=== PATIENT | female | born 1960 | race Caucasian/White ===

== ENCOUNTER 2020-09-16 09:48 | Outpatient (CLI) | payer MEDICARE, BC, SELFPAY ==
--- NOTE | ~2020-09-16 | DEXA_ITS ---
Bone Density Report Name: Ariela Amezcua Age: 60 Sex: Female Ethnicity: Date of : 1960 Indication: osteopenia; prior fracture; asthma or emphysema; hysterectomy; postmenopausal Referring Provider: Ivett, Melodie Franks Study: Bone densitometry was performed. Exam Date: September 16, 2020 Accession number: [id number] Bone Density: Region BMD T-score Z-score Classification AP Spine (L2, L3, L4) 0.766 -2.8 -1.2 Osteoporosis Femoral Neck (Left) 0.675 -1.6 -0.4 Osteopenia Total Hip (Left) 0.881 -0.5 0.4 Normal Total Hip Bilateral Avg 0.862 -0.7 0.3 Normal Femoral Neck (Right) 0.745 -0.9 0.2 Normal Total Hip (Right) 0.842 -0.8 0.1 Normal World Health Organization criteria for BMD impression classify patients as: Normal (T-score at or above -1.0), Osteopenia (T-score between -1.0 and -2.5), or Osteoporosis (T-score at or below -2.5). 10-year Fracture Risk: FRAX not reported because: Some T-score for Spine Total or Hip Total or Femoral Neck at or below -2.5 Previous Exams: Region Exam Age BMD T-score BMD Change BMD Change Date g/cm2 vs Baseline vs Previous AP Spine(L2, L3, L4) 09/16/2020 60 0.766 -2.8 -0.259(-25.2%) -0.123(-13.8%) 01/22/2012 51 0.889 -1.7 -0.136(-13.3%) -0.124(-12.2%) 11/07/2009 49 1.013 -0.6 -0.012(-1.2%) 0.029(2.9%)* 07/24/2008 47 0.984 -0.9 -0.041(-4.0%)* -0.041(-4.0%)* 11/11/2006 46 1.025 -0.5 Total Hip(Left) 09/16/2020 60 0.881 -0.5 0.013(1.5%)# 0.035(4.1%)* 01/22/2012 51 0.846 -0.8 -0.022(-2.6%)# -0.027(-3.1%)# 11/07/2009 49 0.873 -0.6 0.005(0.5%) -0.018(-2.1%) 07/24/2008 47 0.891 -0.4 0.023(2.7%) 0.023(2.7%) 11/11/2006 46 0.868 -0.6 Total Hip(Right) 09/16/2020 60 0.842 -0.8 0.013(1.6%)# -0.007(-0.8%) 01/22/2012 51 0.849 -0.8 0.021(2.5%)# 0.021(2.6%)# 11/07/2009 49 0.828 -0.9 -0.001(-0.1%) 0.006(0.7%) 07/24/2008 47 0.822 -1.0 -0.006(-0.8%) -0.006(-0.8%) 11/11/2006 46 0.829 -0.9 *Denotes significance at 95% confidence level, LSC for AP Spine = 0.022 g/cm2, LSC for Total Hip = 0.027 g/cm2 Clinical Information Provided by Patient: Has had a low trauma fracture Has the following medical conditions: Asthma or Emphysema, Hysterectomy Patient maximum height was 61 No regular weight bearing exercise Drinks caffeinated beverages Onset of menses at age 10 Number of children 2 Impression: The patient has est
--- NOTE | ~2020-09-16 | MM_ITS ---
EXAMINATION: MM screening jocelynn BI w alicia HISTORY: Screening TECHNIQUE: Craniocaudal and mediolateral oblique 3-D tomosynthesis images were obtained and synthetic 2-D images were generated. CAD analysis was submitted and interpreted. COMPARISON: Comparison to multiple prior studies sequentially, with oldest reviewed study dated 06/21. BREAST PARENCHYMAL COMPOSITION: There are scattered areas of fibroglandular density. FINDINGS: There are developing asymmetries in the periareolar location of the right breast. The left breast is stable without evidence for malignancy. IMPRESSION: 1. Developing right breast asymmetries. 2. Additional mammographic views and possible breast ultrasound are recommended. BI-RADS Category 0: Incomplete: Needs additional imaging evaluation. Reviewed, dictated and finalized at location A. IMPRESSION: 1. Developing right breast asymmetries. 2. Additional mammographic views and possible breast ultrasound are recommended . BI-RADS Category 0: Incomplete: Needs additional imaging evaluation.
== END 2020-09-16 09:49 | disposition home or self-care (01) ==
LOC: ANHIMG 09:51
PROVIDERS: PCP Internal Medicine; Visit Provider Internal Medicine
DX: Z12.31 Encounter for screening mammogram for malignant neoplasm of breast (principal); Z78.0 Asymptomatic menopausal state; R92.8 Other abnormal and inconclusive findings on diagnostic imaging of breast; M81.0 Age-related osteoporosis without current pathological fracture; M85.852 Other specified disorders of bone density and structure, left thigh
CPT/HCPCS: 77063; 77067; 77080

== ENCOUNTER 2020-10-11 12:52 | Outpatient (CLI) | payer MEDICARE, BC, SELFPAY ==
--- NOTE | ~2020-10-11 | US_ITS ---
Please refer to diagnostic mammogram report dated 10/11/2020 for details. Reviewed, dictated and finalized at location A.
--- NOTE | ~2020-10-11 | MM_ITS ---
EXAMINATION: MM diagnostic jocelynn RT w alicia HISTORY: Follow-up breast masses TECHNIQUE: Additional 3-D tomosynthesis images of the right breast were performed and synthetic 2-D i mages were generated. CAD analysis was submitted and interpreted. High resolution right complete [address] st ultrasound was performed. COMPARISON: 09/16/2020 BREAST PARENCHYMAL COMPOSITION: Breast composed of scattered areas of fibroglandular density FINDINGS: MAMMOGRAPHIC FINDINGS: There is an 8 mm mass in the mid lateral aspect of the right breast anteriorly. There is a mass in th e subareolar location of the right breast measuring 8 mm, slightly medial on CC view. ULTRASOUND: Right breast ultrasound: At 12:00, 1 cm from the nipple, there is a 7 mm cyst. At 9:00, 1 cm from the nipple, there is a 9 mm intramammary lymph node. No suspicious masses to suggest malignancy. These m asses correspond to the mammographic findings. IMPRESSION: 1. No evidence for malignancy in the right breast. Benign findings. 2. Routine yearly screening mammogram and regular clinical breast examination are recommended. BI-RADS Category 2: Benign finding(s). Reviewed, dictated and finalized at location A. IMPRESSION: 1. No evidence for malignancy in the right breast. Benign findings. 2. Routine yearly screening mammogram and regular clinical breast examination a re recommended. BI-RADS Category 2: Benign finding(s).
== END 2020-10-11 12:53 | disposition home or self-care (01) ==
LOC: ANHIMG 12:53
PROVIDERS: PCP Internal Medicine; Visit Provider Internal Medicine
DX: R92.8 Other abnormal and inconclusive findings on diagnostic imaging of breast (principal)
CPT/HCPCS: 76641; 77061; 77065; G0279

== ENCOUNTER 2021-03-26 13:02 | Outpatient (CLI) | payer MEDICARE, BC, SELFPAY ==
--- NOTE | ~2021-03-26 | US_ITS ---
EXAMINATION:US venous doppler LE LT INDICATION:Left leg pain TECHNIQUE: Multiple grayscale, color flow and Doppler images of the left lower extremity deep venous systems were obtained and reviewed. COMPARISON:No prior studies for comparison. FINDINGS: The common femoral, superficial femoral and popliteal veins demonstrate normal respiratory variation, augmentation and compressibility. Color flow is also seen within the posterior tibial, pe roneal, greater saphenous and profunda veins. IMPRESSION: 1: No lower extremity deep venous thrombosis. Reviewed, dictated and finalized at location B. LER OPERATOR
--- NOTE | ~2021-03-26 | XR_ITS ---
EXAMINATION: XR knee LT min 4V DATE: 03/26/2021 13:39 INDICATION: Left knee pain. TECHNIQUE: 5 views of left knee were obtained. COMPARISON: Left knee radiographs 01/15/2009 FINDINGS: Bone alignment is normal. No fracture. There is mild tricompartmental osteoarthritis charac terized by marginal osteophytes. No joint space narrowing. No knee joint effusion. IMPRESSION: 1. Mild left knee osteoarthritis. Reviewed, dictated and finalized at location A. OR SCRIPT EDITOR
== END 2021-03-26 13:03 | disposition home or self-care (01) ==
LOC: ANHIMG 13:06
PROVIDERS: PCP Internal Medicine; Visit Provider Internal Medicine
DX: M17.12 Unilateral primary osteoarthritis, left knee (principal)
CPT/HCPCS: 73564; 93971

== ENCOUNTER 2023-05-12 02:27 | Day surgery (SDC) | payer MEDICARE, BC, SELFPAY ==
[2023-02-11 10:06] VITALS: BMI 35.4
--- NOTE | 2023-02-15 09:12 | SUR.PREOP ---
Patient called regarding upcoming procedure. Reviewed preop instructions, appointment times, and procedure prep.
--- NOTE | 2023-02-15 09:16 | SUR.PREOP ---
Call patient to give her a reminder call. Patient stated that they had a in the family and would be heading out of town for the . She said she would call back to reschedule her appointment.
[2023-05-03 14:52] VITALS: BMI 35.9
--- NOTE | 2023-05-10 09:18 | SUR.PREOP ---
Patient called regarding upcoming procedure. Reviewed preop instructions, appointment times, and procedure prep.
[2023-05-12 12:35] VITALS: BP 132/96; PULSE 119; RESP 20; TEMP 36.2; O2SAT 98; BMI 35.2
[2023-05-12] MEDS: LACTATED RINGERS 1,000 ML 150 ML IV CONT (12:38)
--- NOTE | 2023-05-12 12:49 | WPDANESEPPF ---
Anes - Initial Pre Proc Eval Procedure: Operation Date: 05/12/23 13:30 Proposed Procedures p Colonoscopy - Nikko Harden MD Date/Time: 05/12/23 12:49 Surgeon: Nikko Harden MD Pre Op Diagnosis: Other Fecal Abnormalities (+cologuard) Patient Data Age: 62 Gender: F Height: 1.55 m Weight: 84.7 kg Last Vital Signs Temp 97.2 F L 05/12/23 12:35 Pulse 119 H 05/12/23 12:35 Resp 20 05/12/23 12:35 BP 132/96 H 05/12/23 12:35 Pulse Ox 98 05/12/23 12:35 O2 Del Method Room Air 05/12/23 12:35 Allergies Allergy/AdvReac Type Severity Reaction Status Date / Time No Known Drug Allergies Allergy Verified 05/12/23 12:39 Home Medications Medication Instructions Recorded Confirmed Type triamcinolone acetonide 0.1 % 1 applic topical QID #80 grams 04/21/19 05/03/23 Rx topical cream dextroamphetamine-amphetamine 20 20 mg PO DAILY 02/11/23 05/03/23 History mg tablet duloxetine 30 mg capsule,delayed 30 mg PO DAILY 02/11/23 05/03/23 History release lisinopril 10 mg tablet 10 mg PO DAILY 02/11/23 05/03/23 History suvorexant 10 mg tablet (Belsomra) 10 mg PO HS 02/11/23 05/03/23 History Patient hx anesthesia problems: none Family hx anesthesia problems: none Results Review: All pre-operative results and documents have been reviewed as part of the pre-operative evaluation. [facility] Family History Family History (Updated 12/30/17 @ 10:43 by DOCTOR UNKNOWN) Mother Family history of osteoarthritis Family history of mental disorder Father Family history of heart disease in male family member before age 55 Family history of mental disorder Family history of osteoarthritis Family history of coronary artery disease Other Family history of bipolar disorder Family history of restless legs syndrome Social History Social History Smoking status: Never smoker Alcohol intake: current Drinks per week: 7 Alcohol use details: occasionally Substance use: former Substance use type: marijuana Other substance usage details: used calming gummies Living arrangements: with family Spiritual care concerns: No Anes - Eval Final PreProcedure Day of Procedure 05/12/23 12:49 Patient weight: obese Heart: regular rate and rhythm Lungs: clear to auscultation Airway: Mallampati scale class II Neurological: alert and oriented Last oral intake: >/= 8 hours ASA classification: III Emergent: no Anesthetic plan: proceed Anesthesia type and monitoring: general GIVS and standard monitoring Results Review: All pre-operative results and documents have been reviewed as part of the pre-operative evaluation. Informed Consent: The patient's anesthetic plan and its attendant risks and benefits were discussed with the patient/family/POA. Questions were solicited and answers provided to the satisfaction of the patient/family/POA.
--- NOTE | 2023-05-12 13:48 | PM.HPGS ---
History of Present Illness History of Present Illness Consent: Risks, benefits, and alternatives have been discussed and questions answered. Patient agrees to proceed with procedure. Chief complaint: Other Fecal Abnormalities (+cologuard) Narrative: Ariela Amezcua is a 62 year old female here for colonoscopy, last one 14 years ago, had recent + cologuard Review of Systems Review of Systems: All systems reviewed & are unremarkable except as noted in HPI and below PMFSH Past Medical History Medical History (Updated 05/12/23 @ 13:49 by Nikko Harden MD) Positive colorectal cancer screening using Cologuard test Family History Family History (Updated 12/30/17 @ 10:43 by DOCTOR UNKNOWN) Mother Family history of osteoarthritis Family history of mental disorder Father Family history of heart disease in male family member before age 55 Family history of mental disorder Family history of osteoarthritis Family history of coronary artery disease Other Family history of bipolar disorder Family history of restless legs syndrome Social History Social History Smoking status: Never smoker Alcohol intake: current Drinks per week: 7 Alcohol use details: occasionally Substance use: former Substance use type: marijuana Other substance usage details: used calming gummies Living arrangements: with family Spiritual care concerns: No Meds Home Medications and Allergies Home Medications Medication Instructions Recorded Confirmed Type triamcinolone acetonide 0.1 % 1 applic topical QID #80 grams 04/21/19 05/03/23 Rx topical cream dextroamphetamine-amphetamine 20 20 mg PO DAILY 02/11/23 05/03/23 History mg tablet duloxetine 30 mg capsule,delayed 30 mg PO DAILY 02/11/23 05/03/23 History release lisinopril 10 mg tablet 10 mg PO DAILY 02/11/23 05/03/23 History suvorexant 10 mg tablet (Belsomra) 10 mg PO HS 02/11/23 05/03/23 History Allergies Allergy/AdvReac Type Severity Reaction Status Date / Time No Known Drug Allergies Allergy Verified 05/12/23 12:39 Vital Signs Vital Signs - 24 hr 05/12/23 12:35 Temperature 97.2 F L Pulse Rate 119 H Respiratory Rate 20 Blood Pressure 132/96 H Pulse Oximetry 98 Oxygen Delivery Room Air Exam Const: General: comfortable and no acute distress HENMT: Face/Nose/Sinus: Normal nares present Eyes: General: appearance normal, both eyes and all related structures Neck: Neck: no JVD Resp: Auscultation: clear to auscultation bilaterally Cardio: Rate: regular rate Rhythm: regular rhythm GI: Inspection: non-distended GI Palp: Yes Soft to palpation Skin: General skin exam: normal color Neuro: General: gait normal Speech: normal speech Extrem: General: normal to inspection Psych: Mental Status: mental status grossly normal Assessment and Plan Assessment and plan (1) Positive colorectal cancer screening using Cologuard test: Code(s): R19.5 - Other fecal abnormalities Status: Acute Assessment and Plan: colonoscopy
[2023-05-12 14:06] VITALS: BP 109/59; PULSE 109; RESP 21; O2SAT 96
[2023-05-12 14:16] VITALS: BP 112/75; PULSE 109; RESP 20; O2SAT 97
[2023-05-12 14:26] VITALS: BP 121/71; PULSE 100; RESP 20; O2SAT 100
== END 2023-05-12 14:32 | disposition home or self-care (01) ==
PROVIDERS: PCP Internal Medicine; Visit Provider Internal Medicine Gastroenterology
PROC: 0DJD8ZZ Inspection of Lower Intestinal Tract, Via Natural or Artificial Opening Endoscopic (ICD-10-PCS; CPT 45378; principal; 2023-05-12 13:30)
DX: K63.5 Polyp of colon (principal); K57.30 Diverticulosis of large intestine without perforation or abscess without bleeding; K64.8 Other hemorrhoids; F10.90 Alcohol use, unspecified, uncomplicated; Z79.52 Long term (current) use of systemic steroids; Z79.899 Other long term (current) drug therapy
CPT/HCPCS: 45385; 88305; J2704; J7120

== ENCOUNTER 2023-09-28 14:47 | Outpatient (CLI) | payer MEDICARE, BC, SELFPAY ==
--- NOTE | ~2023-09-28 | MM_ITS ---
EXAMINATION: MM screening jocelynn BI w alicia HISTORY: Screening TECHNIQUE: Craniocaudal and mediolateral oblique 3-D tomosynthesis images were obtained and synthetic 2-D images were generated. CAD analysis was submitted and interpreted. COMPARISON: Comparison to multiple prior studies sequentially, with oldest reviewed study dated 06/25. BREAST PARENCHYMAL COMPOSITION: Not dense: There are scattered areas of fibroglandular density. FINDINGS: There is no evidence of suspicious mass, calcification, or architectural distortion to sugg est malignancy in either breast. There has been no suspicious interval change. IMPRESSION: 1. No mammographic evidence of malignancy. 2. Recommend routine screening mammography in one year. BI-RADS Category 1: Negative Reviewed, dictated and finalized at location B.
== END 2023-09-28 14:48 | disposition home or self-care (01) ==
LOC: ANHIMG 14:50
PROVIDERS: PCP Internal Medicine; Visit Provider Internal Medicine
DX: Z12.31 Encounter for screening mammogram for malignant neoplasm of breast (principal)
CPT/HCPCS: 77063; 77067

== ENCOUNTER 2024-01-26 14:55 | Outpatient (CLI) | payer MEDICARE, BC, SELFPAY ==
--- NOTE | ~2024-01-26 | DEXA_ITS ---
Bone Density Report Name: SHELTON HURTADO Age: 63 Sex: Female Ethnicity: Date of : 1960 Indication: postmenopausal; screening for osteoporosis; height loss; asthma or emphysema; hysterectomy; Referring Provider: ARMANI CHAUDHRY Study: Bone densitometry was performed. Exam Date: January 26, 2024 Accession number: [id number] Bone Density: Region BMD T-score Z-score Classification AP Spine(L1-L4) 0.843 -1.9 -0.1 Osteopenia Femoral Neck (Left) 0.680 -1.5 -0.2 Osteopenia Total Hip (Left) 0.901 -0.3 0.7 Normal Femoral Neck (Right) 0.607 -2.2 -0.8 Osteopenia Total Hip (Right) 0.893 -0.4 0.6 Normal Total Hip Mean 0.897 -0.4 0.7 Normal World Health Organization criteria for BMD impression classify patients as: Normal (T-score at or above -1.0), Osteopenia (T-score between -1.0 and -2.5), or Osteoporosis (T-score at or below -2.5). 10-year Fracture Risk(1): Major Osteoporotic Fracture 5.8% Hip Fracture 0.9% Reported Risk Factors: [place] (), Neck BMD=0.607, BMI=36.7 (1) FRAX(R) Version 3.08. Fracture probability calculated for an untreated patient. Fracture probability may be lower if the patient has received treatment. Previous Exams: Region Exam Age BMD T-score BMD Change BMD Change Date g/cm2 vs Baseline vs Previous Total Hip(Left) 01/26/2024 63 0.901 -0.3 0.020 (2.2%)# 0.020 (2.2%)# 09/16/2020 60 0.881 -0.5 Total Hip(Right) 01/26/2024 63 0.893 -0.4 0.050 (6.0%)# 0.050 (6.0%)# 09/16/2020 60 0.842 -0.8 *Denotes significance at 95% confidence level, LSC for Total Hip = 0.027 g/cm2 # Denotes dissimilar scan types or analysis methods Clinical Information Provided by Patient: Has the following medical conditions: Asthma or Emphysema, Hysterectomy Patient maximum height was 60 No regular weight bearing exercise Drinks caffeinated beverages Onset of menses at age 10 Number of children 2 Impression: The patient has low bone mass, based on the Right Femoral Neck T-score. The patient has an estimated ten-year risk of hip fracture of 0.9% and an estimated ten-year risk of major fracture of 5.8%, based on the WHO FRAX algorithm. No significant bone loss was observed. Discussion: BONE DENSITY IS LOW AT ONE OR MORE SKELETAL SITES. This patient's lowest T-score is low at one or more skeletal sites. It meets the World Health Organization's (WHO) criteria for ?low bone mass? (T-score between -1.0 and -2.5). The patient's 10-year risk of fracture as calculated by FRAX is less than the threshold where pharmacological therapy is recommended by the National Osteoporosis Foundation (NOF). However, all treatment decisions require clinical judgment and consideration of individual patient factors, including patient preferences, comorbidities, previous drug use, risk factors not captured in the FRAX model (e.g., frailty, falls, vitamin D deficiency, increased bone turnover, interval significant decline in bone density) and possible under or overestimation of fracture risk by FRAX. The patient should follow a healthful lifestyle (good nutrition with adequate calcium and vitamin D, and appropriate weight-bearing exercise). Follow-Up: Consider repeating this study in 2 to 3 years to reassess this patient's status, or sooner if there is some new clinical indication. Reported by: KERRIE on 01/26/2024 3:38:00 PM. Reviewed, dictated and finalized at location A. [facility]
== END 2024-01-26 14:56 | disposition home or self-care (01) ==
LOC: ANHIMG 14:56
PROVIDERS: PCP Internal Medicine; Visit Provider Internal Medicine
DX: M85.89 Other specified disorders of bone density and structure, multiple sites (principal); M81.0 Age-related osteoporosis without current pathological fracture
CPT/HCPCS: 77080

== ENCOUNTER 2024-05-09 11:41 | Outpatient (CLI) | payer MEDICARE, BC, SELFPAY ==
--- NOTE | ~2024-05-09 | US_ITS ---
RIGHT LOWER EXTREMITY VENOUS ULTRASOUND Ordering provider: Melodie Root MD History: . rt thigh pain and swelling . Comparison: None. FINDINGS: --COMMON FEMORAL: Patent and free of thrombus. Normal compressibility, phasic flow and augmentation. --PROXIMAL SUPERFICIAL FEMORAL: Patent and free of thrombus. Normal compressibility, phasic flow and augmentation. --DISTAL SUPERFICIAL FEMORAL: Patent and free of thrombus. Normal compressibility, phasic flow and au gmentation. --POPLITEAL: Patent and free of thrombus. Normal compressibility, phasic flow and augmentation. --POSTERIOR TIBIAL: Patent and free of thrombus. Normal compressibility, phasic flow and augmentation . IMPRESSION: Negative right lower extremity venous US. No deep vein thrombosis. Reviewed, dictated and finalized at location A.
--- OUTSIDE RECORDS SUMMARY | 2024-05-09 13:21 | XMS_ITS | Referral Summary ---
Author Organization [facility] [employer] [facility] Address [address] [place] [address] Phone Care Team Providers Care Comic Writer Name Role Phone Gala Santana MD Primary Care Provider [phone] Encounters Date Type Department Care Team Description 02/18/2024 Telephone Get[employer] [address] [place] [address] [address] [place] [address] Tarsha Wray MD from Last 3 Months Allergies Active Allergy Reactions Criticality Noted Date Comments No Known Allergies Other (See comments) Low Reaction: Medications ALPRAZolam (XANAX) 0.5 mg tablet TAKE 1 TABLET 3 TIMES DAILY NEEDED. 3 Active zolpidem (AMBIEN) 5 mg tabletIndications: Sleep-Onset Insomnia TAKE 1 TABLET AT BEDTIME. 3 Active methylphenidate ER (CONCERTA) 36 mg CR tabletIndications: Attention-Deficit Hyperactivity Disorder 36 mg every morning. [address] (CYMBALTA) 60 mg capsule Take 1 capsule (60 mg total) by mouth daily Active traZODone (DESYREL) 50 mg tablet Take 1 tablet (50 mg total) by mouth nightly Active dextroamphetamine- amphetamine (ADDERALL) 5 mg tablet 1 tablet (5 mg total) Active lisinopriL (PRINIVIL,ZESTRIL) 10 mg tablet Take 1 tablet (10 mg total) by mouth daily Active clobetasoL (TEMOVATE) 0.05 % ointment Active Belsomra 10 mg tablet Take 1 tablet (10 mg total) by mouth nightly Active Active Problems Problem Noted Date Diagnosed Date Sweating abnormality 02/18/2024 Assessment & Plan (02/18/2024 3:04 PM RN BSN): I called the patient on February 17 to see if she would like a referral to endocrinology for her sweating She would very much be interested in this We will put the referral in She was asked to call if she does not hear back by the of the year Vaginal irritation 12/13/2023 Assessment & Plan (02/07/2024 4:42 PM RN BSN): Looks better with the temovate Use reviewed I will see her back in 6m. Assessment & Plan (12/13/2023 2:45 PM CDT): I suspect this is lichen sclerosis. I was going to start with triamcinolone, but then she told me that she has been using temovate from her pcp for about a month Goes back next week. To continue on To use for three weeks and then one week off. To continue vaseline. We discussed that it take time to get under control She is not wearing pad, but leaks. She has an appointment with . Well woman exam 12/13/2023 Overview (12/13/2023): Lab: Pap:remote h/o abnl pap. Labs with pcp Beatrice:late 2022 at [place] Colonoscopy:at [place] 2023- she is not sure when she goes back. Cologuard was positive. BMD:remote. She is on the waiting list. Assessment & Plan (02/07/2024 4:43 PM RN BSN): Due in Nov 2024 Assessment & Plan (12/13/2023 2:24 PM CDT): Needs complete exam. Status post epigastric hernia repair, follow-up exam 08/05/2017 Fibromyalgia 05/27/2015 Inflammation of sacroiliac joint 05/27/2015 Chronic pain 05/24/2015 Cervical radiculopathy 05/03/2015 Low back pain 04/24/2014 Overview (08/05/2017): Back pain Neck pain 04/24/2014 Overview (06/05/2016): Neck pain Bipolar affective disorder 09/28/2012 Overview (06/05/2016): Bipolar disorder Attention deficit disorder (ADD) without hyperac tivity 09/28/2012 Overview (06/05/2016): ADD (attention deficit disorder) Anaclitic depression 09/28/2012 Overview (08/05/2017): Depression Resolved Problems Problem Noted Date Diagnosed Date Resolved Date Dizziness 04/24/2014 08/05/2017 Overview (06/05/2016): Dizziness Constipation 04/24/2014 08/05/2017 Overview (06/05/2016): Constipation Ankle pain 04/17/2014 08/05/2017 Overview (06/05/2016): Ankle pain Anxiety 09/28/2012 08/05/2017 Overview (06/06/2016): Anxiety Social History Tobacco Use Types Packs/Day Years Used Date Smoking Tobacco: Never Smokeless Tobacco: Never Alcohol Use Standard Drinks/Week Comments Yes 3 (1 standard drink = 0.6 oz pur e alcohol) Humiliation, Afraid, Rape, and Kick questionnair e Answer Date Recorded Within the last year, have y ou been afraid of your partner or ex-partner? No 12/13/2023 Within the last year, have y ou been humiliated or emotionally abused in other ways by your partner or ex-partner? No Within the last year, have y ou been kicked, hit, slapped, or otherwise physically hurt by your partner or ex-partner? No 12/13/2023 Within the last year, have y ou been raped or forced to have any kind of sexual activity by your partner or ex-partner? No 12/13/2023 AUDIT-C Answer Date Recorded Q1: How often do you have a drink containing alc ohol? Monthly or less 12/13/2023 Q2: How many drinks containi ng alcohol do you have on a typical day when you are drinking? 1 or 2 12/13/2023 Q3: How often do you have si x or more drinks on one occasion? Never 12/13/2023 Comments Unknown Sex and Gender Information Value Date Recorded Sex Assigned at Not on file Legal Sex Female 2:57 AM RN BSN Gender Identity Not on file Sexual Orientation Not on file Occupation Industry Job Start Date Job End Date Retired from [employer] Not on file Not on file Not on file Last Filed Vital Signs Vital Sign Reading Time Taken Comments Blood Pressure 130/70 02/07/2024 4:30 PM RN BSN Pulse 80 08/05/2017 3:51 PM CDT Temperature 36.7 C (98.1 F) 08/05/2017 3:51 PM CDT Respiratory Rate - - Oxygen Saturation 94% 07/29/2017 7:41 AM CDT Inhaled Oxygen Concentration - - Weight 85.3 kg (188 lb) 02/07/2024 4:30 PM RN BSN Height 154.9 cm (5' 1 ) 02/07/2024 4:30 PM RN BSN Body Mass Index 35.52 02/07/2024 4:30 PM RN BSN Plan of Treatment Not on file Procedures Procedure Name Priority Date/Time Associated Diagnosis Comments SCREENING MAMMOGRAM W JESU Routine 03/31/2012 2:54 PM RN BSN from Last 3 Months or Most Recently Relevant to Health Maintenance Results * Screening Mammogram W Jesu (03/31/2012 2:54 PM RN BSN) Anatomical Region Laterality Modality Breast N/A Mammography 03/31/2012 2:54 PM RN BSN Narrative 03/31/2012 4:02 PM RN BSN CHHAYA JOE M.D. NIKHIL WILCOX, FINAL REPORT The radiology attending physician has personally reviewed this study, and has reviewed and/or edited this written report and agrees with it. ACC# Date Time Exam [id number] Mar 31, 2012 14:54:00 [facility] [id number] Diag Mammogram Unilateral R Technologist(s): Damaris Shultz; ; [id number] Mar 31, 2012 14:54:00 [facility] [id number] Unilateral Tomosynthesis R Technologist(s): Damaris Shultz; ; EXAMINATION: RIGHT UNILATERAL FULL FIELD DIGITAL DIAGNOSTIC MAMMOGRAM AND DIGITAL BREAST TOMOSYNTHESIS HISTORY: Abnormal screening mammogram. Recent screening mammogram performed at [facility] demonstrated focal asymmetry in the outer RIGHT breast on the craniocaudal view. TECHNIQUE: Additional views of the RIGHT breast were obtained utilizing full field digital mammography. Digital breast tomosynthesis was also performed and reviewed as a part of this examination. COMPARISON: 03/23/2012, 03/03/2011, 02/20/2011, 02/07/2010. BREAST PARENCHYMAL COMPOSITION: Heterogeneously dense, which could obscure detection of small masses. FINDINGS: Round, partially circumscribed, partially obscured mass is seen in the upper outer RIGHT breast and is stable compared to prior examinations dated 01/31/2011 and 02/07/2010. The patient has had cysts seen on prior sonograms and thus this finding likely represents an additional cyst and is benign. IMPRESSION: 1. Stable mass in the upper outer RIGHT breast, likely representing a cyst given the finding of cysts on prior studies. 2. Annual screening mammography is recommended. OVERALL FINAL ASSESSMENT: BI-RADS Category 2: Benign finding. Requested By: Clementina Chino M.D. Dictated By: NIKHIL WILCOX, on Mar 31 2012 3:13P This document has been electronically signed by: CHHAYA JOE M.D. on Mar 31 2012 4:02P Procedure Note Provider, MD Eb - 06/21/2016 CHHAYA JOE M.D. NIKHIL WILCOX, FINAL REPORT The radiology attending physician has personally reviewed this study, and has reviewed and/or edited this written report and agrees with it. ACC# Date Time Exam [id number] Mar 31, 2012 14:54:00 [facility] [id number] Diag Mammogram Unilateral R Technologist(s): Damaris Shultz; ; [id number] Mar 31, 2012 14:54:00 [facility] [id number] Unilateral Tomosynthesis R Technologist(s): Damaris Shultz; ; EXAMINATION: RIGHT UNILATERAL FULL FIELD DIGITAL DIAGNOSTIC MAMMOGRAM AND DIGITAL BREAST TOMOSYNTHESIS HISTORY: Abnormal screening mammogram. Recent screening mammogram performed at [facility] demonstrated focal asymmetry in the outer RIGHT breast on the craniocaudal view. TECHNIQUE: Additional views of the RIGHT breast were obtained utilizing full field digital mammography. Digital breast tomosynthesis was also performed and reviewed as a part of this examination. COMPARISON: 03/23/2012, 03/03/2011, 02/20/2011, 02/07/2010. BREAST PARENCHYMAL COMPOSITION: Heterogeneously dense, which could obscure detection of small masses. FINDINGS: Round, partially circumscribed, partially obscured mass is seen in the upper outer RIGHT breast and is stable compared to prior examinations dated 01/31/2011 and 02/07/2010. The patient has had cysts seen on prior sonograms and thus this finding likely represents an additional cyst and is benign. IMPRESSION: 1. Stable mass in the upper outer RIGHT breast, likely representing a cyst given the finding of cysts on prior studies. 2. Annual screening mammography is recommended. OVERALL FINAL ASSESSMENT: BI-RADS Category 2: Benign finding. Requested By: Clementina Chino M.D. Dictated By: NIKHIL WILCOX on Mar 31 2012 3:13P This document has been electronically signed by: CHHAYA JOE M.D. on Mar 31 2012 4:02P Historical Provider MD [facility] Tiffani l Result from Last 3 Months or Most Recently Relevant to Health Maintenance Insurance [facility] FEDERAL MEDICARE MEDICARE [facility] MEDICARE Care Teams Comic Writer Relationship Specialty Start Date End Date Gala Santana MD [address] [place] [address] PCP - General 09/27/12
--- OUTSIDE RECORDS SUMMARY | 2024-05-09 13:21 | XMS_ITS | Clinical Summary ---
Author Organization [facility] [employer] [facility] Address [address] [place] [address] Phone Care Team Providers Care Lifter Name Role Phone Gala Santana MD Primary Care Provider [phone] Allergies Active Allergy Reactions Criticality Noted Date [...] daily Active clobetasoL (TEMOVATE) 0.05 % ointment 4 Active Belsomra 10 mg tablet Take 1 tablet (10 mg total) by mouth nightly Active Active Problems Problem Noted Date Diagnosed Date Sweating abnormality 02/18/2024 Assessment & Plan (02/18/2024 3:04 PM PAINT ROLLER ASSEMBLER): I called the patient on February 17 to see if she would like a referral to endocrinology for her sweating She would very much be interested in this We will put the referral in She was asked to call if she does not hear back by the of the year Vaginal irritation 12/13/2023 Assessment & Plan (02/07/2024 4:42 PM PAINT ROLLER ASSEMBLER): Looks better with the temovate Use reviewed [...] pap. Labs with pcp Beatrice:late 2022 at [place] Colonoscopy:at [place] 2023- she is not sure when she goes back. Cologuard was positive. BMD:remote. She is on the waiting list. Assessment & Plan (02/07/2024 4:43 PM PAINT ROLLER ASSEMBLER): Due in Nov 2024 Assessment & Plan [...] pain Anxiety 09/28/2012 08/05/2017 Overview (06/06/2016): Anxiety Encounters Date Type Department Care Team Description 02/18/2024 Telephone 3 day [facility] [place] [address] Tarsha Wray MD from Last 3 Months Surgical History Surgery Date Site/Laterality Comments MD DSTRJ NEUROLYTIC AGENT OTHER PERIPHERAL NERVE Nerve Ablation Other Branch - Sacral Lateral Cooled Radiofrequency Ablation (Added by TW Conv) APPENDECTOMY OPEN 03/01/1985 - 02/28/1986 LAPAROSCOPIC HYSTERECTOMY 03/01/1998 - 02/28/1999 she still has ovaries. For DUB LAPAROSCOPIC TUBAL LIGATION 03/01/1991 - 02/29/1992 BREAST LUMPECTOMY 03/01/1990 - 02/28/1991 ANKLE SURGERY 10/11/2012 Right Removal of bone fragment, right distal fibula/ankle ANKLE ARTHROSCOPY 07/05/2015 Right Medical History Medical History Date Comments Bipolar affective disorder (HCC) Depression Attention deficit disorder without hyperactivity Family History Medical History Relation Name Comments Chronic Pain Father Heart attack Father Myocardial infa rction; Cause of : Myocardial infarction Heart disease Father Family history of cardiac disorder - (Added by TW Conv) Stroke Father Cancer Mother may not have be en cancer. Meds could have been for her arthritis. In [facility]. 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 Not on file Not on file Not on file Obstetrics History Para Term AB IAB SAB Ectopic Multiple Livin g Live Births 2 2 2 2 2 Date Outcome GA Total Labor Labor/2nd/3rd Weight Sex Type Anes PTL Margaret A1 A5 Name Clin 01/16 Term 40w 0d M Vaginal Living 05/17 Term 40w 0d M Vaginal Living Last Filed Vital Signs Vital Sign Reading Time Taken Comments Blood Pressure 130/70 02/07/2024 4:30 PM PAINT ROLLER ASSEMBLER Pulse 80 08/05/2017 3:51 PM CDT Temperature 36.7 C (98.1 F) 08/05/2017 3:51 PM CDT Respiratory Rate - - Oxygen Saturation 94% 07/29/2017 7:41 AM CDT Inhaled Oxygen Concentration - - Weight 85.3 kg (188 lb) 02/07/2024 4:30 PM PAINT ROLLER ASSEMBLER Height 154.9 cm (5' 1 ) 02/07/2024 4:30 PM PAINT ROLLER ASSEMBLER Body Mass Index 35.52 02/07/2024 4:30 PM PAINT ROLLER ASSEMBLER Plan of Treatment Health Maintenance Due Date Last Done Comments Cervical Cancer Screening 1960 Colon Cancer Screening-Colonoscopy 1960 Depression Screening 1960 Fall Risk Assessment 1960 Hepatitis C Screening 1960 Osteoporosis Screening-Bone Density Scan 1960 Hepatitis B Screening 1976 Breast Cancer Screening-Mammogram 03/31/2013 013, 03/23/2012 Well Visit 65+ 08/25/2023 Influenza Vaccine (#1) 2023 , 11/06/2021, 01/12/2021, Additional history exists Covid-19 Vaccine ( - 2023-2 5 season) 2024 11/25/2023, 08/26/2023, 12/30/2022, Additional history exists DTaP/Tdap/Td Vaccine (2 - Td or Tdap) 03/27/2030 03/27/2020 Zoster Vaccine Completed 11/18/2019, 05/12/2019 Pneumococcal vaccine 65+ Completed 08/26/2023 Procedures Procedure Name Priority Date/Time Associated Diagnosis Comments SCREENING MAMMOGRAM W JESU Routine 03/31/2012 2:54 PM PAINT ROLLER ASSEMBLER from Last 3 Months or Most Recently Relevant to Health Maintenance Results * Screening Mammogram W Jesu (03/31/2012 2:54 PM PAINT ROLLER ASSEMBLER) Anatomical Region Laterality Modality Breast N/A Mammography 03/31/2012 2:54 PM PAINT ROLLER ASSEMBLER Narrative 03/31/2012 4:02 PM PAINT ROLLER ASSEMBLER CHHAYA JOE M.D. NIKHIL WILCOX, FINAL REPORT The radiology attending physician has personally reviewed this study, and has reviewed and/or edited this written report and agrees with it. ACC# Date Time Exam [id number] Mar 31, 2012 14:54:00 [facility] [id number] Diag Mammogram Unilateral R Technologist(s): Damaris Shultz; ; [id number] Mar 31, 2012 14:54:00 [facility] [id number] Unilateral Tomosynthesis R Technologist(s): Damaris Shultz; ; EXAMINATION: RIGHT UNILATERAL FULL FIELD DIGITAL DIAGNOSTIC MAMMOGRAM AND DIGITAL BREAST TOMOSYNTHESIS HISTORY: Abnormal screening mammogram. Recent screening mammogram performed at [facility] demonstrated focal asymmetry in the outer RIGHT [...] agrees with it. ACC# Date Time Exam [id number] Mar 31, 2012 14:54:00 [facility] [id number] Diag Mammogram Unilateral R Technologist(s): Damaris Shultz; ; [id number] Mar 31, 2012 14:54:00 [facility] [id number] Unilateral Tomosynthesis R Technologist(s): Damaris hSultz; ; EXAMINATION: RIGHT UNILATERAL FULL FIELD DIGITAL DIAGNOSTIC MAMMOGRAM AND DIGITAL BREAST TOMOSYNTHESIS HISTORY: Abnormal screening mammogram. Recent screening mammogram performed at [facility] demonstrated focal asymmetry in the outer RIGHT [...] Most Recently Relevant to Health Maintenance Insurance [place] [address] BCBS FEDERAL MEDICARE MEDICARE [facility] FEDERAL Member Subscriber Plan / Payer (Ef fective 2019-Present) Name:Ariela Hurtado Relation to Subscriber:Spouse Name:JL HURTADO Date of :1958 Address: [address] [place] [address] [place] [address] Payer ID:[id number] (NAIC) Group ID:[id number] Type:[facility] Address: [address] [place] [id number] MEDICARE Care Teams Lifter Relationship Specialty Start Date End Date Gala Santana MD [address] [place], [place] [id number] PCP - General 09/27/12
== END 2024-05-09 11:42 | disposition home or self-care (01) ==
PROVIDERS: PCP Internal Medicine; Visit Provider Internal Medicine
DX: M79.651 Pain in right thigh (principal); R60.0 Localized edema
CPT/HCPCS: 93971

== ENCOUNTER 2024-06-21 16:12 | Outpatient (CLI) | payer MEDICARE, BC, SELFPAY ==
--- NOTE | ~2024-06-21 | XR_ITS ---
XR knee RT 3V Ordering provider: Melodie Root MD History: . right knee pain . Comparison: January 15, 2009 FINDINGS: BONES: No acute fracture or dislocation. Small bony fragment is seen posteriorly below the fabella wh ich may be a loose body. JOINT SPACES: Narrowing of the medial compartment with marginal osteophytes seen. SOFT TISSUES: Normal. IMPRESSION: No acute osseous abnormality right knee. Mild to moderate osteoarthritic changes. Possible loose body seen posteriorly. Reviewed, dictated and finalized at location A.
== END 2024-06-21 16:13 | disposition home or self-care (01) ==
LOC: MICIMG 16:14
PROVIDERS: PCP Internal Medicine; Visit Provider Internal Medicine
DX: M17.11 Unilateral primary osteoarthritis, right knee (principal)
CPT/HCPCS: 73562